=== PATIENT | female | born 1980 | race Caucasian/White ===

== ENCOUNTER 2016-07-29 14:09 | Emergency (ER) | payer SELFPAY ==
--- NOTE | 2016-07-29 15:24 | ERRECORD ---
[facility] HPI RASH (15:00 DHAM) CHIEF COMPLAINT: Patient presents for evaluation of pruritis, Patient presents for evaluation of rash. HISTORIAN: History provided by patient, "I have had a rash with some itchy bumps off and on for a few months. The last time I noticed them was 2-3 days ago." she describes the bumps as "tiny and can hardly see them.". LOCATION: Symptoms are localized, most severe to upper back and upper arms but "they are gone now.". QUALITY: Rash described as papular. SEVERITY: Currently there are no symptoms. TIME COURSE: Gradual onset of symptoms, 2, months ago, Symptoms are improving, are intermittent. ASSOCIATED WITH: No associated chills, No associated extremity swelling, No associated fever, No associated oral lesions, No associated pain, No associated shortness of breath, No associated scaling, No associated upper respiratory infection. EXACERBATED BY: Patient's condition exacerbated by nothing. RELIEVED BY: Patient's condition relieved by time. ROS (15:02 DHAM) CONSTITUTIONAL: Historian denies chills, denies fever. EYES: Historian denies eye redness, denies eye discharge, denies itching, denies tearing. ENT: Historian denies rhinorrhea, denies sore throat. RESPIRATORY: Historian denies cough, denies shortness of breath, denies sputum, denies wheezing. GI: Historian denies abdominal pain, denies nausea, denies vomiting. SKIN: Historian reports pruritis, reports rash. NEUROLOGIC: Historian denies mental status changes. ALLERGIC/IMMUNOLOGIC: Historian denies eczema, denies frequent infections, denies hives. PSYCHIATRIC: bipolar. PAST MEDICAL HISTORY MEDICAL HISTORY: Flu vaccine not up to date, Tetanus immunization up to date, Pneumococcal vaccine not up to date, HX OF BLOOD CLOTS (DVT LEFT LEG, PULMONARY EMBOLISM RIGHT LUNG), carpal tunnel. VERIFIED 07/29/16. (14:21 LGIB) FEMALE SURGICAL HISTORY: Surgical history of tubal ligation, TUBES IN EARS. VERIFIED 07/29/16. (14:21 LGIB) PSYCHIATRIC HISTORY: Psychiatric history includes, anxiety, bipolar disorder, depression, OCD, PTSD VERIFIED 07/29/16. (14:21 LGIB) SOCIAL HISTORY: Patient denies alcohol use, Patient denies drug use, Patient currently uses tobacco, daily, Patient smokes 1 pack per day VERIFIED 07/29/16. (14:21 LGIB) FAMILY HISTORY: Family istory is not significant. (14:21 LGIB) &a-1R&a+25V*p+0X*r9901D*c202B*c15G*c2P*p-0X&a-25V&a+1R Name: Yazmin Pablo : 1980 F36 MedRec: [id number] AcctNum: [id number] Prepared: [facility] Jul 30, 2016 01:22 by Interface Page 1 of 3 pMD [facility] NOTES: I have reviewed the nursing documentation regarding PMHX, social hx, family hx, and surgical history as well as vitals and triage notes and agree. (14:55 DHAM) KNOWN ALLERGIES Sulfa (Sulfonamide Antibiotics): Reaction: Rash, Source: Patient, - Entered category: Sulfa (Sulfonamide Antibiotics) -- Entered category: Sulfa (Sulfonamide Antibiotics) -- Entered category: Sulfa (Sulfonamide Antibiotics) -- Entered category: Sulfa (Sulfonamide Antibiotics) -- Entered category: Sulfa (Sulfonamide Antibi CURRENT MEDICATIONS (WedJul 29, 2016 14:19 LGIB) BuSpar: TABLET : Strength - 5 mg : ORAL Patient Dose: 10 mg Oral 2 times a day. Wellbutrin: TABLET : Strength - 100 mg : ORAL Patient Dose: 300 mg Oral once a day. warfarin: TABLET : Strength - 5 mg : ORAL Patient Dose: 5 mg Oral once a day.5 MG EVERY OTHER DAY AND 7.5 MG EVERY 3RD DAY. LaMICtal: TABLET : Strength - 25 mg : ORAL Patient Dose: unk mg Oral. VITAL SIGNS (14:21 LGIB) VITAL SIGNS: BP: 113/78, Pulse: 88, Resp: 18 (Non-Labored), Temp: 98.2 (Oral), Pain: 0, O2 sat: 96 on Room Air, Time: 07/29/2016 14:21. PHYSICAL EXAM (15:03 DHAM) CONSTITUTIONAL: Vital signs reviewed, Patient afebrile, Pulse normal, Blood pressure normal, Respiratory rate normal, Patient appears non toxic, Patient appears pain free, Patient alert and oriented to person, place and time. EYES: Eye exam included findings of eyelids normal to inspection, Pupils equally round and reactive to light, Extraocular muscles intact, Conjunctiva normal. SKIN: Pt says that she can't see the rash now and I concur with no visible rash on the extremities or trunk at this time. LYMPHATIC: Lymphatic exam normal. PROBLEM LIST No recorded problems DIAGNOSIS (15:05 DHAM) FINAL: PRIMARY: apparent normal exam. PRESCRIPTION No recorded prescriptions &a-1R&a+25V*p+0X*f9053L*c202B*c15G*c2P*p-0X&a-25V&a+1R Name: Yazmin Pablo : 1980 6 MedRec: [id number] AcctNum: [id number] Prepared: WedJul 30, 2016 01:22 by Interface Page 2 of 3 pMD [facility] DISPOSITION PATIENT: Disposition Type: Discharge, Disposition: *Discharge Home. (15:05 DHAM) Patient left the department. (15:12 LGIB) Rodriguez: DHAM=MD Angelo, Javier LGIB=LIDIA Norwood, Barbara &a-1R&a+25V*p+0X*c7771W*c202B*c15G*c2P*p-0X&a-25V&a+1R Name: Yazmin Pablo : 1980 6 MedRec: [id number] AcctNum: [id number] Prepared: WedJul 30, 2016 01:22 by Interface Page 3 of 3 pMD MTDD
--- NOTE | 2016-07-29 15:29 | PICIS ---
[facility] EMERGENCY RECORD TRIAGE (WedJul 29, 2016 14:19 LGIB) TRIAGE NOTES: rash for a few months, began when taking lamictal. (WedJul 29, 2016 14:19 LGIB) PATIENT: NAME: Yazmin Pablo, AGE: 36, GENDER: female, : Sat 1980, TIME OF GREET: WedJul 29, 2016 14:10, PREFERRED LANGUAGE: Kyrgyz, ETHNICITY: Not or , HIGH ALERT: HIGH ALERT 3, ECODE BILLING MAP: [facility], SSN: [id number], Zip Code: [address], KG WEIGHT: 99.79, PHONE: , , , PERSON ID: [id number], PAYMENT: [employer] Self Pay, PCP: MD Crabtree Kyle. (WedJul 29, 2016 14:19 LGIB) COMPLAINT: rash. (WedJul 29, 2016 14:19 LGIB) ADMISSION: URGENCY: 5 Fast Track, ADMISSION SOURCE: Home, TRANSPORT: CAR, BED: ER -03. (WedJul 29, 2016 14:19 LGIB) SIRS SCORING: Heart Rate 55-109 (0), Temp range 96.8-101.1 (0), respiratory rate 12-24 (0), Mental Status altered: no (0), Total SIRS Score 0. (14:21 LGIB) PROVIDERS: TRIAGE NURSE: Barbara Norwood RN. (WedJul 29, 2016 14:19 LGIB) PREVIOUS VISIT ALLERGIES: Sulfa (Sulfonamide Antibiotics). (WedJul 29, 2016 14:19 LGIB) Sulfa (Sulfonamide Antibiotics). (14:21 LGIB) KNOWN ALLERGIES Sulfa (Sulfonamide Antibiotics): Reaction: Rash, Source: Patient, - Entered category: Sulfa (Sulfonamide Antibiotics) -- Entered category: Sulfa (Sulfonamide Antibiotics) -- Entered category: Sulfa (Sulfonamide Antibiotics) -- Entered category: Sulfa (Sulfonamide Antibiotics) -- Entered category: Sulfa (Sulfonamide Antibi CURRENT MEDICATIONS (WedJul 29, 2016 14:19 LGIB) BuSpar: TABLET : Strength - 5 mg : ORAL Patient Dose: 10 mg Oral 2 times a day. Wellbutrin: TABLET : Strength - 100 mg : ORAL Patient Dose: 300 mg Oral once a day. warfarin: TABLET : Strength - 5 mg : ORAL Patient Dose: 5 mg Oral once a day.5 MG EVERY OTHER DAY AND 7.5 MG EVERY 3RD DAY. LaMICtal: TABLET : Strength - 25 mg : ORAL Patient Dose: unk mg Oral. VITAL SIGNS (14:21 LGIB) VITAL SIGNS: BP: 113/78, Pulse: 88, Resp: 18 (Non-Labored), Temp: 98.2 (Oral), Pain: 0, O2 sat: 96 on Room Air, Time: 07/29/2016 14:21. NURSING ASSESSMENT: SKIN (14:46 LGIB) &a-1R&a+25V*p+0X*x3777Y*c202B*c15G*c2P*p-0X&a-25V&a+1R Name: Yazmin Pablo : 1980 F36 MedRec: [id number] AcctNum: [id number] Prepared: Silvia Jul 30, 2016 01:22 by Interface Page 1 of 4 pMD [facility] EMERGENCY RECORD CONSTITUTIONAL: Complex assessment performed, Patient arrives ambulatory, Gait steady, History obtained from patient, Patient appears comfortable, Patient cooperative, Patient alert, Oriented to person, place and time, Skin warm, Skin dry, Skin normal in color, Mucous membranes pink, Mucous membranes moist, Patient is well-groomed, Patient complains of RASH, GENERALIZED RASH, MORE FOCUSED ON BILATERAL UPPER ARMS AND BACK. PT NOTICED THE RASH BEGINNING ABOUT THE SAME TIME SHE BEGAN TAKING LAMICTAL A FEW MONTHS AGO. PAIN: Patient rates pain as 0 out of 10. SKIN: Skin assessment findings include skin warm, Skin dry, Skin normal in color, Inspection findings include rash, flesh colored, flat, itchy, without drainage. SAFETY: Side rails up, Cart/Stretcher in lowest position, Call light within reach, Hospital ID band on. NURSING PROCEDURE: DISCHARGE NOTE (15:16 LGIB) DISCHARGE: Patient discharged to home, ambulating without assistance, driving self, unaccompanied, Summary of Care printed/ provided, Patient requested and was provided an electronic copy of Discharge Instructions, Discharge instructions given to patient, Simple or moderate discharge teaching performed, Above person(s) verbalized understanding of discharge instructions and follow-up care, Patient treated and evaluated by physician. BELONGINGS: Belongings and valuables with patient at time of discharge include:, Belongings remain with patient, Valuables remain with patient. HPI RASH (15:00 DHAM) CHIEF COMPLAINT: Patient presents for evaluation of pruritis, Patient presents for evaluation of rash. HISTORIAN: History provided by patient, "I have had a rash with some itchy bumps off and on for a few months. The last time I noticed them was 2-3 days ago." she describes the bumps as "tiny and can hardly see them.". LOCATION: Symptoms are localized, most severe to upper back and upper arms but "they are gone now.". QUALITY: Rash described as papular. SEVERITY: Currently there are no symptoms. TIME COURSE: Gradual onset of symptoms, 2, months ago, Symptoms are improving, are intermittent. ASSOCIATED WITH: No associated chills, No associated extremity swelling, No associated fever, No associated oral lesions, No associated pain, No associated shortness of breath, No associated scaling, No associated upper respiratory infection. EXACERBATED BY: Patient's condition exacerbated by nothing. RELIEVED BY: Patient's condition relieved by time. ROS (15:02 DHAM) CONSTITUTIONAL: Historian denies chills, denies fever. &a-1R&a+25V*p+0X*o2638G*c202B*c15G*c2P*p-0X&a-25V&a+1R Name: Yazmin Pablo : 1980 F36 MedRec: [id number] AcctNum: [id number] Prepared: WedJul 30, 2016 01:22 by Interface Page 2 of 4 pMD [facility] EMERGENCY RECORD EYES: Historian denies eye redness, denies eye discharge, denies itching, denies tearing. ENT: Historian denies rhinorrhea, denies sore throat. RESPIRATORY: Historian denies cough, denies shortness of breath, denies sputum, denies wheezing. GI: Historian denies abdominal pain, denies nausea, denies vomiting. SKIN: Historian reports pruritis, reports rash. NEUROLOGIC: Historian denies mental status changes. ALLERGIC/IMMUNOLOGIC: Historian denies eczema, denies frequent infections, denies hives. PSYCHIATRIC: bipolar. PAST MEDICAL HISTORY MEDICAL HISTORY: Flu vaccine not up to date, Tetanus immunization up to date, Pneumococcal vaccine not up to date, HX OF BLOOD CLOTS (DVT LEFT LEG, PULMONARY EMBOLISM RIGHT LUNG), carpal tunnel. VERIFIED 07/29/16. (14:21 LGIB) FEMALE SURGICAL HISTORY: Surgical history of tubal ligation, TUBES IN EARS. VERIFIED 07/29/16. (14:21 LGIB) PSYCHIATRIC HISTORY: Psychiatric history includes, anxiety, bipolar disorder, depression, OCD, PTSD VERIFIED 07/29/16. (14:21 LGIB) SOCIAL HISTORY: Patient denies alcohol use, Patient denies drug use, Patient currently uses tobacco, daily, Patient smokes 1 pack per day VERIFIED 07/29/16. (14:21 LGIB) FAMILY HISTORY: Family istory is not significant. (14:21 LGIB) NOTES: I have reviewed the nursing documentation regarding PMHX, social hx, family hx, and surgical history as well as vitals and triage notes and agree. (14:55 DHAM) PHYSICAL EXAM (15:03 DHAM) CONSTITUTIONAL: Vital signs reviewed, Patient afebrile, Pulse normal, Blood pressure normal, Respiratory rate normal, Patient appears non toxic, Patient appears pain free, Patient alert and oriented to person, place and time. EYES: Eye exam included findings of eyelids normal to inspection, Pupils equally round and reactive to light, Extraocular muscles intact, Conjunctiva normal. SKIN: Pt says that she can't see the rash now and I concur with no visible rash on the extremities or trunk at this time. LYMPHATIC: Lymphatic exam normal. EVENTS TRANSFER: Triage to Emergency Emergency Room -03. (WedJul 29, 2016 14:19 LGIB) Removed from Emergency Emergency Room -03. (15:12 LGIB) &a-1R&a+25V*p+0X*x0059V*c202B*c15G*c2P*p-0X&a-25V&a+1R Name: Yazmin Pablo : 1980 F36 MedRec: [id number] AcctNum: [id number] Prepared: [facility] Jul 30, 2016 01:22 by Interface Page 3 of 4 pMD [facility] EMERGENCY RECORD O2SAT INTERPRETATION (14:55 DHAM) O2SAT: Continuous pulse oximetry, Oxygen saturation 96%, on room air, Oxygen saturation interpretation: Normal, No intervention required. PROBLEM LIST No recorded problems DIAGNOSIS (15:05 DHAM) FINAL: PRIMARY: apparent normal exam. DISPOSITION PATIENT: Disposition Type: Discharge, Disposition: *Discharge Home. (15:05 DHAM) Patient left the department. (15:12 LGIB) INSTRUCTION (15:06 DHAM) DISCHARGE: NORMAL EXAM, (6Y - ADULT). FOLLOWUP: MD Leyda, Ilan, [facility], [address] [place] [address], . SPECIAL: Please return for any new rash or see your pcp while the rash is present. Return for any concerns. PRESCRIPTION No recorded prescriptions IMAGING (15:13 LGIB) *DISCHARGE INSTRUCTIONS RECEIPT: Image captured from scanner. *SUPPLY CHARGE SHEET: Image captured from scanner. ADMIN (WedJul 30, 2016 01:21 DHAM) DIGITAL SIGNATURE: MD Stephens Darren. Rodriguez: CINDY=MD Stephens Darren LGIB=LIDIA Norwood, Barbara &a-1R&a+25V*p+0X*u2910A*c202B*c15G*c2P*p-0X&a-25V&a+1R Name: Bev Yazmin Smitha : 1980 F36 MedRec: [id number] AcctNum: [id number] Prepared: WedJul 30, 2016 01:22 by Interface Page 4 of 4 pMD MTDD
== END 2016-07-29 15:12 | disposition home or self-care (01) ==
LOC: BURERS 14:09
DX: Z71.1 Person with feared health complaint in whom no diagnosis is made (principal); F41.9 Anxiety disorder, unspecified; F31.9 Bipolar disorder, unspecified; F42.9 Obsessive-compulsive disorder, unspecified; F43.10 Post-traumatic stress disorder, unspecified; F17.210 Nicotine dependence, cigarettes, uncomplicated; Z79.899 Other long term (current) drug therapy
CPT/HCPCS: 99282

== ENCOUNTER 2016-07-30 14:58 | Emergency (ER) | payer SELFPAY ==
[2016-07-30 15:43] LABS: Prothrombin Time 28.3 SEC (12.0-14.7)
[2016-07-30 15:45] LABS: ALT (SGPT) 13 U/L (0-55); AST (SGOT) 14 U/L (5-34); Alkaline Phosphatase 60 U/L (40-150); Anion Gap 10 mmol/L (10-20); BUN (Urea Nitrogen) 15 mg/dL (7.0-18.7); Bilirubin, Total 0.3 mg/dL (0.2-1.2); Calc. Creatinine Clearance 0 mL/min (70-130); Calcium 8.4 mg/dL (7.8-10.44); Carbon Dioxide 24 mmol/L (22-29); Chloride 109 mmol/L (98-107); Estimated GFR-MDRD 75; Globulin 2.8 g/dL (2.4-3.5); Protein, Total 6.5 g/dL (6.0-8.3)
--- NOTE | 2016-07-30 16:12 | ERRECORD ---
[facility] EMERGENCY RECORD [facility] CHIEF COMPLAINT: Patient presents for evaluation of cough, Patient presents for evaluation of 'Lung pain'. HISTORIAN: History provided by patient, 36F presents to the ED with complaints of Lung Pain. States that she was lying in bed today and had left posterior chest wall pain. Has a history of blood clots and is on Warfarin. Reports ongoing cough. Denies chest pain, denies shortness of breath. Denies fever, hemoptysis, headache. LOCATION: Symptoms are localized, most severe to left posterior back. QUALITY: Pain is sharp in nature, described as tearing sensation. TIME COURSE: Sudden onset of symptoms, There has been no change in the patient's symptoms over time. ASSOCIATED WITH: Associated with pleuritic symptoms. EXACERBATED BY: Patient's condition exacerbated by smoking. RELIEVED BY: Patient's condition relieved by nothing because patient has not tried anything for relief. ROS (15:20 JJA) CONSTITUTIONAL: Negative constitutional review of systems, Historian denies chills, denies fever. EYES: Negative eye review of systems, Historian denies eye pain, denies vision changes. ENT: Negative ears, nose, throat review of systems, Historian denies rhinorrhea, denies sore throat, denies voice changes. CARDIOVASCULAR: Negative cardiovascular review of systems, Historian denies chest pain, denies palpitations. RESPIRATORY: Historian reports cough, cough, pleuritic left back pain. GI: Negative gastrointestinal review of systems, Historian denies abdominal pain, denies constipation, denies diarrhea, denies nausea, denies vomiting. GENITOURINARY FEMALE: Negative genitourinary review of systems, Historian denies dysuria, denies frequency. MUSCULOSKELETAL: Negative musculoskeletal review of systems, Historian denies back pain, denies fall, denies injury. SKIN: Negative skin review of systems, Historian denies rash, denies skin changes. NEUROLOGIC: Negative neurologic review of systems, Historian denies headache, denies mental status changes, denies paralysis, denies paresthesias, denies sensory changes. HEMO/LYMPHATIC: Normal hematologic/lymphatic system review, Historian denies abnormal blood clotting. ALLERGIC/IMMUNOLOGIC: Normal allergy/immunologic system review, Historian denies frequent infections. PAST MEDICAL HISTORY (15:04 KMOR) MEDICAL HISTORY: Flu vaccine not up to date, Tetanus immunization up to date, Pneumococcal vaccine not up to date, HX OF &a-1R&a+25V*p+0X*q4163O*c202B*c15G*c2P*p-0X&a-25V&a+1R Name: Yazmin Pablo : 1980 F36 MedRec: [id number] AcctNum: [id number] Prepared: Silvia Jul 30, 2016 16:06 by Interface Page 1 of 4 pMD [facility] EMERGENCY RECORD BLOOD CLOTS (DVT LEFT LEG, PULMONARY EMBOLISM RIGHT LUNG), carpal tunnel. FEMALE SURGICAL HISTORY: Surgical history of tubal ligation, TUBES IN EARS. CAMI. PSYCHIATRIC HISTORY: Psychiatric history includes, anxiety, bipolar disorder, depression, OCD, PTSD VERIFIED. SOCIAL HISTORY: Patient denies alcohol use, Patient denies drug use, Patient currently uses tobacco, daily, Patient smokes 1 pack per day. FAMILY HISTORY: Family istory is not significant. KNOWN ALLERGIES Sulfa (Sulfonamide Antibiotics): Reaction: Rash, Source: Patient, - Entered category: Sulfa (Sulfonamide Antibiotics) -- Entered category: Sulfa (Sulfonamide Antibiotics) -- Entered category: Sulfa (Sulfonamide Antibiotics) -- Entered category: Sulfa (Sulfonamide Antibiotics) -- Entered category: Sulfa (Sulfonamide Antibi CURRENT MEDICATIONS (15:02 KMOR) BuSpar: TABLET : Strength - 5 mg : ORAL Patient Dose: 10 mg Oral 2 times a day. Wellbutrin: TABLET : Strength - 100 mg : ORAL Patient Dose: 300 mg Oral once a day. warfarin: TABLET : Strength - 5 mg : ORAL Patient Dose: 5 mg Oral once a day.5 MG EVERY OTHER DAY AND 7.5 MG EVERY 3RD DAY. LaMICtal: TABLET : Strength - 25 mg : ORAL Patient Dose: unk mg Oral. VITAL SIGNS VITAL SIGNS: Resp: 18, Pain: 2, Time: 07/30/2016 15:01. (15:01 KMOR) BP: 117/79, Pulse: 103, O2 sat: 97 on Room Air, Time: 07/30/2016 15:03. (15:03 LSMI) Pulse: 98, O2 sat: 97 on Room Air, Time: 07/30/2016 15:33. (15:33 KMOR) BP: 132/96, Time: 07/30/2016 15:37. (15:37 KMOR) Temp: 98.0 (Oral), Time: 07/30/2016 15:47. (15:47 KMOR) PHYSICAL EXAM (15:20 [facility]) CONSTITUTIONAL: Vital signs reviewed, Patient afebrile, Pulse normal, Blood pressure normal, Respiratory rate normal, Patient appears non toxic, Patient appears pain free, Patient alert and oriented to person, place and time. HEAD: Head exam normal, Head exam included findings of head atraumatic, normocephalic. EYES: Eye exam normal, Eye exam included findings of eyelids &a-1R&a+25V*p+0X*k6891I*c202B*c15G*c2P*p-0X&a-25V&a+1R Name: Yazmin Pablo : 1980 F36 MedRec: [id number] AcctNum: [id number] Prepared: Silvia Jul 30, 2016 16:06 by Interface Page 2 of 4 D [facility] EMERGENCY RECORD normal to inspection, Pupils equally round and reactive to light, Extraocular muscles intact, no nystagmus. ENT: ENT exam normal, Ear exam normal, external ear normal, tympanic membranes normal, no bleeding, Pharynx exam normal, Uvula exam normal, Tonsil exam normal, Mouth exam normal, mucous membranes moist, teeth normal. NECK: Neck exam normal, Neck exam included findings of normal range of motion, Trachea midline, no meningeal signs, no cervical adenopathy, no tenderness. RESPIRATORY CHEST: coarse upper airway breath sounds. CARDIOVASCULAR: Cardiovascular assessment normal, Cardiovascular exam included findings of heart rate regular rate and rhythm, Heart sounds normal. ABDOMEN FEMALE: Abdominal exam included findings of abdomen nontender, Bowel sounds normal, no distension, no mass, no pulsatile masses, no peritoneal signs, no rigidity, no guarding, no rebound, Rovsing's sign absent. BACK: Back exam normal, Back exam included findings of normal inspection, range of motion normal, no tenderness. UPPER EXTREMITY: Upper extremity exam normal, Upper extremity exam included findings of inspection normal, Range of motion normal, Motor strength normal, Sensation intact, Radial pulse normal. LOWER EXTREMITY: Lower extremity exam normal, Lower extremity exam included findings of inspection normal, Range of motion normal, Motor strength normal, Sensation intact, Posterior tibial pulse normal, Pedal pulse normal. NEURO: Neuro exam normal, Neuro exam findings include patient oriented to person, place and time, Speech normal, Gait normal, Cranial nerves intact, no focal motor deficits, no focal sensory deficits. SKIN: Skin exam normal, Skin exam included findings of skin warm, dry, and normal in color, no rash. PSYCHIATRIC: Psychiatric exam normal, Normal affect. RADIOLOGYINTERPRETATION (15:36 JJA) CHEST: Chest films negative, no infiltrates, no pneumothorax, no hemothorax, no cardiomegaly. DOCTOR NOTES TEXT: Patient presented with concern that she has a new PE. Wells score for PE 1.5 for previous PE, puts her in the low risk group. Symptoms were more concerning for viral infection rather than PE, but due to her history we obtained lab testing and radiology studies. Dimer was negative, effectively ruling out pulmonary embolism. CXR showed no focal infiltrates, and I believe her symptoms are likely secondary to a viral URI. She is appropriate for outpatient management. (15:21 JJA) PATIENT STATUS: Patient has improved since arrival to emergency department. (15:55 [facility]) PATIENT PLAN: The patient will be discharged, The patient will &a-1R&a+25V*p+0X*m8460Y*c202B*c15G*c2P*p-0X&a-25V&a+1R Name: Yazmin Pablo : 1980 F36 MedRec: [id number] AcctNum: [id number] Prepared: [facility] Jul 30, 2016 16:06 by Interface Page 3 of 4 pMD [facility] EMERGENCY RECORD follow up with primary care physician. (15:55 [facility]) DATA REVIEWED: Lab data reviewed, Xray data reviewed. (15:55 JJA) PROBLEM LIST No recorded problems DIAGNOSIS (15:53 JJA) FINAL: PRIMARY: Viral infection. PRESCRIPTION No recorded prescriptions DISPOSITION PATIENT: Disposition Type: Discharge, Disposition: *Discharge Home. (15:53 JJA) Patient left the department. (16:00 KMOR) Rodriguez: SHANEKA=MD Katie, Antwon KMOR=LIDIA Bearden, Doreen SILVERMANI=DAVID Leon Leah &a-1R&a+25V*p+0X*o4273Z*c202B*c15G*c2P*p-0X&a-25V&a+1R Name: BevYazmin : 1980 F36 MedRec: [id number] AcctNum: [id number] Prepared: Silvia Jul 30, 2016 16:06 by Interface Page 4 of 4 pMD MTDD
--- NOTE | 2016-07-30 16:15 | PICIS ---
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 (WedJul 30, 2016 15:02 KMOR) PATIENT: NAME: Yazmin Pablo, AGE: 36, GENDER: female, : Sat 1980, TIME OF GREET: WedJul 30, 2016 14:59, PREFERRED LANGUAGE: Yi, ETHNICITY: Not or , HIGH ALERT: HIGH ALERT 3, ECODE BILLING MAP: [facility], SSN: [id number], Zip Code: [address], KG WEIGHT: 99.79, PHONE: , , , PERSON ID: [id number], PAYMENT: SJX Self Pay, PCP: MD Crabtree Kyle. (WedJul 30, 2016 15:02 KMOR) COMPLAINT: Lung pain. (WedJul 30, 2016 15:02 KMOR) ADMISSION: URGENCY: 4 Non Urgent, ADMISSION SOURCE: Home, TRANSPORT: CAR, BED: ER -02. (WedJul 30, 2016 15:02 KMOR) ASSESSMENT: Assessment: A&OX4. RR EVEN AND UNLABORED., Symptoms began 30 min ago. (15:04 KMOR) PAIN: Patient complains of pain described as, aching, on a scale 0-10 patient rates pain as 3, Location LEFT LUNG. (15:04 KMOR) SIRS SCORING: Heart Rate 55-109 (0), Temp range 96.8-101.1 (0), respiratory rate 12-24 (0), Mental Status altered: no (0), Infection or Suspected Infection: No. (15:04 KMOR) TRIAGE SCREENING: Patient denies suicidal ideation, Patient denies presence of domestic violence. (15:04 KMOR) LMP: Last menstrual period: 07/23/2016. (15:04 KMOR) PROVIDERS: TRIAGE NURSE: Doreen Bearden RN. (Silvia Jul 30, 2016 15:02 KMOR) VITAL SIGNS: Resp 18, Pain 2, Time 07/30/2016 15:01. (15:01 KMOR) PREVIOUS VISIT ALLERGIES: Sulfa (Sulfonamide Antibiotics). (WedJul 30, 2016 15:02 KMOR) Sulfa (Sulfonamide Antibiotics). (15:04 KMOR) KNOWN ALLERGIES Sulfa (Sulfonamide Antibiotics): Reaction: Rash, Source: Patient, - Entered category: Sulfa (Sulfonamide Antibiotics) -- Entered category: Sulfa (Sulfonamide Antibiotics) -- Entered category: Sulfa (Sulfonamide Antibiotics) -- Entered category: Sulfa (Sulfonamide Antibiotics) -- Entered category: Sulfa (Sulfonamide Antibi CURRENT MEDICATIONS (15:02 KMOR) BuSpar: TABLET : Strength - 5 mg : ORAL Patient Dose: 10 mg Oral 2 times a day. Wellbutrin: TABLET : Strength - 100 mg : ORAL Patient Dose: 300 mg Oral once a day. warfarin: TABLET : Strength - 5 mg : ORAL Patient Dose: 5 mg Oral once a day.5 MG EVERY OTHER DAY AND 7.5 MG EVERY 3RD DAY. &a-1R&a+25V*p+0X*w2450W*c202B*c15G*c2P*p-0X&a-25V&a+1R Name: Yazmin Pablo : 1980 F36 MedRec: [id number] AcctNum: [id number] Prepared: WedJul 30, 2016 16:06 by Interface Page 1 of 6 pMD [facility] EMERGENCY RECORD LaMICtal: TABLET : Strength - 25 mg : ORAL Patient Dose: unk mg Oral. VITAL SIGNS VITAL SIGNS: Resp: 18, Pain: 2, Time: 07/30/2016 15:01. (15:01 KMOR) BP: 117/79, Pulse: 103, O2 sat: 97 on Room Air, Time: 07/30/2016 15:03. (15:03 LSMI) Pulse: 98, O2 sat: 97 on Room Air, Time: 07/30/2016 15:33. (15:33 KMOR) BP: 132/96, Time: 07/30/2016 15:37. (15:37 KMOR) Temp: 98.0 (Oral), Time: 07/30/2016 15:47. 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 PAIN: aching pain, left upper back, on a scale 0-10 patient rates pain as 2. RESPIRATORY/CHEST: Breath sounds clear, Respiratory assessment findings include respiratory effort easy, Respirations regular, Conversing normally, Neck and chest exam findings include trachea midline, Chest expansion equal, Chest movement symmetrical, no signs of distress, Associated with cough, loose. NOTES: Patient tolerated procedure well. NURSING PROCEDURE: DISCHARGE NOTE (15:55 KMOR) DISCHARGE: Patient discharged to home, ambulating without assistance, driving self, unaccompanied, Summary of Care printed/ provided, Transition record given to patient, Discharge instructions given to patient, Simple or moderate discharge teaching performed, by LIDIA Logan, Discharge instructions and follow up reviewed with patient. Pt ambulatory to discharge desk., Above person(s) verbalized understanding of discharge instructions and follow-up care. BELONGINGS: Belongings remain with patient, Valuables remain with patient. NURSING PROCEDURE: TRANSPORT TO TESTS PATIENT IDENTIFIER: Patient actively involved in identification process, Patient's identity verified by patient stating name, Patient's identity verified by patient stating date. 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 (15:31 KMOR) FOLLOW-UP: After procedure, patient returned to emergency department. (15:33 KMOR) ORDER DETAILS Order Name: Comprehensive Metabolic Panel, Status: Active, Time: 15:14 07/30/2016, User: SHANEKA, - Ordered for: MD Wilson Jason, - Entered by: MD Wilson Jason - [facility] Jul 30, 2016 15:14, - Quantity: 1, Order Name: D-Dimer (Quantitative), Status: Active, Time: 15:14 07/30/2016, User: SHANEKA, - Ordered for: MD Wilson Jason, - Entered by: MD Wilson Jason - Silvia Jul 30, 2016 15:14, - Quantity: 1, Order Name: Protime with INR, Status: Active, Time: 15:14 07/30/2016, User: SHANEKA, - Ordered for: MD Wilson Jason, - Entered by: MD Wilson Jason - Silvia Jul 30, 2016 15:14, - Quantity: 1, Order Name: XR Chest Pa & Lat STANDARD, Status: Active, Time: 15:14 07/30/2016, User: SHANEKA, - Ordered for: MD Wilson Jason, - Entered by: MD Wilson Jason - [facility] Jul 30, 2016 15:14, - Quantity: 1. HPI COUGH (15:16 JJA) CHIEF COMPLAINT: Patient presents for evaluation of cough, Patient presents for evaluation of 'Lung pain'. HISTORIAN: History provided by patient, 36F presents to the ED with complaints of Lung Pain. States that she was lying in bed today and had left posterior chest wall pain. Has a history of blood clots and is on Warfarin. Reports ongoing cough. Denies chest pain, denies shortness of breath. Denies fever, hemoptysis, headache. LOCATION: Symptoms are localized, most severe to left posterior back. QUALITY: Pain is sharp in nature, described as tearing sensation. TIME COURSE: Sudden onset of symptoms, There has been no change in the patient's symptoms over time. ASSOCIATED WITH: Associated with pleuritic symptoms. EXACERBATED BY: Patient's condition exacerbated by smoking. RELIEVED BY: Patient's condition relieved by nothing because patient has not tried anything for relief. ROS (15:20 JJA) CONSTITUTIONAL: Negative constitutional review of systems, Historian denies chills, denies fever. EYES: Negative eye review of systems, Historian denies eye pain, &a-1R&a+25V*p+0X*f5743W*c202B*c15G*c2P*p-0X&a-25V&a+1R Name: Yazmin Pablo : 1980 F36 MedRec: [id number] AcctNum: [id number] Prepared: Silvia Jul 30, 2016 16:06 by Interface Page 3 of 6 pMD [facility] EMERGENCY RECORD denies vision changes. ENT: Negative ears, nose, throat review of systems, Historian denies rhinorrhea, denies sore throat, denies voice changes. CARDIOVASCULAR: Negative cardiovascular review of systems, Historian denies chest pain, denies palpitations. RESPIRATORY: Historian reports cough, cough, pleuritic left back pain. GI: Negative gastrointestinal review of systems, Historian denies abdominal pain, denies constipation, denies diarrhea, denies nausea, denies vomiting. GENITOURINARY FEMALE: Negative genitourinary review of systems, Historian denies dysuria, denies frequency. MUSCULOSKELETAL: Negative musculoskeletal review of systems, Historian denies back pain, denies fall, denies injury. SKIN: Negative skin review of systems, Historian denies rash, denies skin changes. NEUROLOGIC: Negative neurologic review of systems, Historian denies headache, denies mental status changes, denies paralysis, denies paresthesias, denies sensory changes. HEMO/LYMPHATIC: Normal hematologic/lymphatic system review, Historian denies abnormal blood clotting. ALLERGIC/IMMUNOLOGIC: Normal allergy/immunologic system review, Historian denies frequent infections. PAST MEDICAL HISTORY (15:04 KMOR) MEDICAL HISTORY: Flu vaccine not up to date, Tetanus immunization up to date, Pneumococcal vaccine not up to date, HX OF BLOOD CLOTS (DVT LEFT LEG, PULMONARY EMBOLISM RIGHT LUNG), carpal tunnel. FEMALE SURGICAL HISTORY: Surgical history of tubal ligation, TUBES IN EARS. CAMI. PSYCHIATRIC HISTORY: Psychiatric history includes, anxiety, bipolar disorder, depression, OCD, PTSD VERIFIED. SOCIAL HISTORY: Patient denies alcohol use, Patient denies drug use, Patient currently uses tobacco, daily, Patient smokes 1 pack per day. FAMILY HISTORY: Family istory is not significant. PHYSICAL EXAM (15:20 JJA) CONSTITUTIONAL: Vital signs reviewed, Patient afebrile, Pulse normal, Blood pressure normal, Respiratory rate normal, Patient appears non toxic, Patient appears pain free, Patient alert and oriented to person, place and time. HEAD: Head exam normal, Head exam included findings of head atraumatic, normocephalic. EYES: Eye exam normal, Eye exam included findings of eyelids normal to inspection, Pupils equally round and reactive to light, Extraocular muscles intact, no nystagmus. ENT: ENT exam normal, Ear exam normal, external ear normal, tympanic membranes normal, no bleeding, Pharynx exam normal, Uvula &a-1R&a+25V*p+0X*m8036W*c202B*c15G*c2P*p-0X&a-25V&a+1R Name: Yazmin Pablo : 1980 F36 MedRec: [id number] AcctNum: [id number] Prepared: Silvia Jul 30, 2016 16:06 by Interface Page 4 of 6 pMD [facility] EMERGENCY RECORD exam normal, Tonsil exam normal, Mouth exam normal, mucous membranes moist, teeth normal. NECK: Neck exam normal, Neck exam included findings of normal range of motion, Trachea midline, no meningeal signs, no cervical adenopathy, no tenderness. RESPIRATORY CHEST: coarse upper airway breath sounds. CARDIOVASCULAR: Cardiovascular assessment normal, Cardiovascular exam included findings of heart rate regular rate and rhythm, Heart sounds normal. ABDOMEN FEMALE: Abdominal exam included findings of abdomen nontender, Bowel sounds normal, no distension, no mass, no pulsatile masses, no peritoneal signs, no rigidity, no guarding, no rebound, Rovsing's sign absent. BACK: Back exam normal, Back exam included findings of normal inspection, range of motion normal, no tenderness. UPPER EXTREMITY: Upper extremity exam normal, Upper extremity exam included findings of inspection normal, Range of motion normal, Motor strength normal, Sensation intact, Radial pulse normal. LOWER EXTREMITY: Lower extremity exam normal, Lower extremity exam included findings of inspection normal, Range of motion normal, Motor strength normal, Sensation intact, Posterior tibial pulse normal, Pedal pulse normal. NEURO: Neuro exam normal, Neuro exam findings include patient oriented to person, place and time, Speech normal, Gait normal, Cranial nerves intact, no focal motor deficits, no focal sensory deficits. SKIN: Skin exam normal, Skin exam included findings of skin warm, dry, and normal in color, no rash. PSYCHIATRIC: Psychiatric exam normal, Normal affect. LAB INTERPRETATION (15:54 JJA) INTERPRETATION: I reviewed the lab results, Chemistry normal, PT normal, D-dimer negative. EVENTS TRANSFER: Triage to Emergency Emergency Room -02. (WedJul 30, 2016 15:02 KMOR) Removed from Emergency Emergency Room -02. (16:00 KMOR) RADIOLOGYINTERPRETATION (15:36 JJA) CHEST: Chest films negative, no infiltrates, no pneumothorax, no hemothorax, no cardiomegaly. DOCTOR NOTES TEXT: Patient presented with concern that she has a new PE. Wells score for PE 1.5 for previous PE, puts her in the low risk group. Symptoms were more concerning for viral infection rather than PE, but due to her history we obtained lab testing and radiology studies. Dimer was negative, effectively ruling out pulmonary embolism. CXR showed no focal infiltrates, and I believe her symptoms &a-1R&a+25V*p+0X*w7079K*c202B*c15G*c2P*p-0X&a-25V&a+1R Name: Yazmin Pablo : 1980 F36 MedRec: [id number] AcctNum: [id number] Prepared: WedJul 30, 2016 16:06 by Interface Page 5 of 6 pMD [facility] EMERGENCY RECORD are likely secondary to a viral URI. She is appropriate for outpatient management. (15:21 JJA) PATIENT STATUS: Patient has improved since arrival to emergency department. (15:55 JJA) PATIENT PLAN: The patient will be discharged, The patient will follow up with primary care physician. (15:55 JJA) DATA REVIEWED: Lab data reviewed, Xray data reviewed. (15:55 JJAC) PROBLEM LIST No recorded problems DIAGNOSIS (15:53 JJA) FINAL: PRIMARY: Viral infection. DISPOSITION PATIENT: Disposition Type: Discharge, Disposition: *Discharge Home. (15:53 JJAC) Patient left the department. (16:00 KMOR) INSTRUCTION (15:53 JJA) DISCHARGE: URI, VIRAL, NO ABX (ADULT). [facility] [address] [place], [place] [id number], . SPECIAL: Follow up with regular doctor. Continue Warfarin. PRESCRIPTION No recorded prescriptions IMAGING (16:00 KMOR) *DISCHARGE INSTRUCTIONS RECEIPT: Image captured from scanner. *SUPPLY CHARGE SHEET: Image captured from scanner. ADMIN DIGITAL SIGNATURE: MD Wilson Jason. (15:55 JORGE) LIDIA Bearden Krista. (16:01 KMOR) Rodriguez: SHANEKA=MD Wilson Jason KMOR=LIDIA Bearden Krista LSMI=DAVID Leon Leah &a-1R&a+25V*p+0X*r4188W*c202B*c15G*c2P*p-0X&a-25V&a+1R Name: Bev Yazmin L : 1980 F36 MedRec: [id number] AcctNum: [id number] Prepared: [facility] Jul 30, 2016 16:06 by Interface Page 6 of 6 pMD MTDD
--- NOTE | 2016-07-30 22:29 | RAD ---
CHEST TWO VIEWS 07/30/2016 Comparison is made with a 10/25/2012 study. The heart is normal in size, and the lungs are clear. No acute infiltrate or effusion was seen. Th ere is no vascular congestion or edema. The mediastinum appears normal, and the trachea is midline. IMPRESSION: Stable exam showing no acute findings. POS: HOME
== END 2016-07-30 15:55 | disposition home or self-care (01) ==
LOC: BURERS 14:58
DX: B34.9 Viral infection, unspecified (principal); F41.9 Anxiety disorder, unspecified; F31.9 Bipolar disorder, unspecified; F43.10 Post-traumatic stress disorder, unspecified; F42.9 Obsessive-compulsive disorder, unspecified; I82.402 Acute embolism and thrombosis of unspecified deep veins of left lower extremity; Z86.711 Personal history of pulmonary embolism; F17.210 Nicotine dependence, cigarettes, uncomplicated; Z79.01 Long term (current) use of anticoagulants; Z79.899 Other long term (current) drug therapy
CPT/HCPCS: 36415; 71020; 80053; 85379; 85610; 99283

== ENCOUNTER 2016-08-13 14:08 | Outpatient (CLI) | payer MEDICAID, SELFPAY ==
[2016-08-13 15:15] LABS: Prothrombin Time 31.3 SEC (12.0-14.7)
== END 2016-08-13 14:09 | disposition home or self-care (01) ==
LOC: HPCALD 14:08
PROVIDERS: ATTEND Physician Assistant
DX: Z01.419 Encounter for gynecological examination (general) (routine) without abnormal findings (principal); Z20.2 Contact with and (suspected) exposure to infections with a predominantly sexual mode of transmission; Z86.711 Personal history of pulmonary embolism
CPT/HCPCS: 36415; 85610; 86592; 86593; 87389; 87480; 87491; 87510; 87591; 87660; 88142; G0123

== ENCOUNTER 2016-10-20 07:40 | Emergency (ER) | payer OTHER ==
[2016-10-20 08:13] LABS: Bilirubin Negative (Negative); Blood, Urine Negative (Negative); Clarity Clear (Clear); Glucose, Urine (Dipstick) Negative (Negative); Leukocyte Negative (Negative); Nitrite Negative (Negative); Protein, Urine (Dipstick) Negative (Neg-Trace); Urobilinogen 0.2 mg/dL (0.2-1.0); pH, Urine 6.5 (5.0-9.0)
[2016-10-20 08:15] LABS: Pregnancy Test - Urine (BHCG) NEGATIVE (NEGATIVE); Pregu Control Bar Appear? YES (CONTROL BAR)
[2016-10-20 08:26] LABS: #Basophils 0.1 thou/uL (0.0-0.2); #Eosinphils 0.3 thou/uL (0.0-0.7); #Lymphocytes 2.2 thou/uL (1.20-3.40); #Monocytes 0.8 thou/uL (0.11-0.59); #Neutrophils 3.7 thou/uL (1.40-6.50); %Basophils 1.1 % (0.0-1.0); %Eosinophils 3.8 % (0.0-10.0); %Lymphocytes 31.3 % (21.0-51.0); %Monocytes 10.9 % (0.0-10.0); %Neutrophils 52.8 % (42.0-75.0); Hemoglobin 15.5 g/dL (12.0-16.0); Mean Corpuscular HGB CONC 34.7 g/dL (32.0-36.0); Mean Corpuscular Hemoglobin 30.6 pg (27.0-31.0); Mean Corpuscular Volume 88.2 fl (81.0-99.0); Mean Platelet Volume 6.2 fL (7.4-10.4); Platelet Count 319 thou/uL (130-400); RBC Distribution Width 13.9 % (11.5-14.5); Red Blood Cell (RBC) Count 5.06 mill/uL (4.20-5.40)
[2016-10-20 08:32] LABS: INR-International Normal Ratio 2.9; Prothrombin Time 31.2 SEC (12.0-14.7)
[2016-10-20] MEDS ORDERED: Sodium Chloride 0.9% 100 ML ONE (08:37)
[2016-10-20] MEDS ORDERED: cefTRIAXone\\ROCEPHIN 2 GM VIAL ONE (08:37)
[2016-10-20 08:39] LABS: Anion Gap 11 mmol/L (10-20); BUN (Urea Nitrogen) 9 mg/dL (7.0-18.7); Calc. Creatinine Clearance 0 mL/min (70-130); Calcium 8.5 mg/dL (7.8-10.44); Carbon Dioxide 26 mmol/L (22-29); Chloride 107 mmol/L (98-107); Estimated GFR-MDRD 67; Glucose 98 mg/dL (70-105); Potassium 4.1 mmol/L (3.5-5.1); Sodium 140 mmol/L (136-145)
--- NOTE | 2016-10-20 21:24 | RAD ---
CHEST TWO VIEWS 10/20/16 Comparison is made with a 07/30/16 study. The heart is normal in size and the lungs are clear. No infiltrate or effusion was seen. There is no vascular congestion or edema. The trachea is midline. IMPRESSION: Stable exam showing no acute findings. POS: HOME
== END 2016-10-20 10:02 | disposition home or self-care (01) ==
LOC: BURERS 07:40
DX: J18.9 Pneumonia, unspecified organism (principal); F31.9 Bipolar disorder, unspecified; F41.9 Anxiety disorder, unspecified; F17.210 Nicotine dependence, cigarettes, uncomplicated; Z86.711 Personal history of pulmonary embolism; Z79.01 Long term (current) use of anticoagulants
CPT/HCPCS: 36415; 71020; 80048; 81003; 81025; 85025; 85610; 96361; 96365; J0696; J7050

== ENCOUNTER 2016-11-09 19:24 | Emergency (ER) | payer OTHER ==
[2016-11-09] MEDS ORDERED: predniSONE 20 MG TAB ONE (19:41)
== END 2016-11-09 20:19 | disposition home or self-care (01) ==
LOC: BURERS 19:24
DX: J20.9 Acute bronchitis, unspecified (principal); J30.1 Allergic rhinitis due to pollen; J06.9 Acute upper respiratory infection, unspecified; F31.9 Bipolar disorder, unspecified; F17.210 Nicotine dependence, cigarettes, uncomplicated; Z79.01 Long term (current) use of anticoagulants
CPT/HCPCS: 94640; J7506; J7620

== ENCOUNTER 2017-01-09 12:38 | Emergency (ER) | payer OTHER ==
[2017-01-09 13:14] LABS: Blood, Urine Trace (Negative); Clarity Cloudy (Clear); Glucose, Urine (Dipstick) Negative (Negative); Leukocyte Trace (Negative); Nitrite Negative (Negative); Specific Gravity, Urine 1.025 (1.005-1.030); Urobilinogen 0.2 mg/dL (0.2-1.0); pH, Urine 5.5 (5.0-9.0)
[2017-01-09 13:20] LABS: #Basophils 0.1 thou/uL (0.0-0.2); #Eosinphils 0.1 thou/uL (0.0-0.7); #Lymphocytes 1.7 thou/uL (1.20-3.40); #Monocytes 0.5 thou/uL (0.11-0.59); %Eosinophils 1.5 % (0.0-10.0); %Lymphocytes 20.2 % (21.0-51.0); %Monocytes 6.2 % (0.0-10.0); %Neutrophils 71.1 % (42.0-75.0); Hemoglobin 15.4 g/dL (12.0-16.0); Mean Corpuscular HGB CONC 33.8 g/dL (32.0-36.0); Mean Corpuscular Hemoglobin 29.4 pg (27.0-31.0); Mean Corpuscular Volume 86.9 fl (81.0-99.0); Mean Platelet Volume 6.4 fL (7.4-10.4); Platelet Count 339 thou/uL (130-400); RBC Distribution Width 14.3 % (11.5-14.5); Red Blood Cell (RBC) Count 5.24 mill/uL (4.20-5.40); White Blood Cell (WBC) Count 8.5 thou/uL (4.8-10.8)
[2017-01-09 13:21] LABS: INR-International Normal Ratio 2.5; PTT 41.8 SEC (22.9-36.1); Prothrombin Time 27.6 SEC (12.0-14.7)
[2017-01-09 13:23] LABS: Bilirubin Negative (Negative); Protein, Urine (Dipstick) Negative (Neg-Trace)
[2017-01-09 13:24] LABS: Bacteria/HPF 2+ HPF (None Seen); Crystals/HPF None Seen HPF (Negative); Hyaline Casts/LPF NONE SEEN LPF (0-3 Hyaline); Other Casts/LPF None Seen LPF (0-3 Hyaline); Oval Fat Bodies/HPF None Seen HPF (None Seen); RBC/HPF 0-3 HPF (0-3); Renal Epithelial None Seen HPF (0-3); Sperm/HPF None Seen HPF (None Seen); Transitional Epithelial NONE SEEN HPF (0-3); Trichomonas/HPF None Seen HPF (None Seen); Yeast-All Forms None Seen HPF (None Seen)
[2017-01-09 13:38] LABS: Anion Gap 15 mmol/L (10-20); BUN (Urea Nitrogen) 13 mg/dL (7.0-18.7); Calc. Creatinine Clearance 0 mL/min (70-130); Calcium 9.1 mg/dL (7.8-10.44); Carbon Dioxide 21 mmol/L (22-29); Chloride 105 mmol/L (98-107); Estimated GFR-MDRD 61; Glucose 103 mg/dL (70-105); Potassium 4.2 mmol/L (3.5-5.1); Sodium 137 mmol/L (136-145)
== END 2017-01-09 13:40 | disposition home or self-care (01) ==
LOC: BURERS 12:38
DX: G56.03 Carpal tunnel syndrome, bilateral upper limbs (principal); F31.9 Bipolar disorder, unspecified; F41.9 Anxiety disorder, unspecified; F43.10 Post-traumatic stress disorder, unspecified; F42.9 Obsessive-compulsive disorder, unspecified; F17.210 Nicotine dependence, cigarettes, uncomplicated; Z79.899 Other long term (current) drug therapy; Z79.01 Long term (current) use of anticoagulants
CPT/HCPCS: 80048; 81003; 81015; 85025; 85610; 85730; 87086; 99284

== ENCOUNTER 2017-01-17 12:27 | Emergency (ER) | payer OTHER ==
[2017-01-17] MEDS ORDERED: HYDROcodone/Acetaminophen 5/325 mg Tablet ONE (13:01)
--- NOTE | 2017-01-17 13:49 | RAD ---
RIGHT HAND 3 VIEWS: Date: 01/17/17 No fracture or dislocation seen. All bones appear intact. The carpal relations appear normal. IMPRESSION: No acute findings. POS: HOME
--- NOTE | 2017-01-17 13:53 | RAD ---
RIGHT WRIST 3 VIEWS: Date: 01/17/17 FINDINGS: No fracture, dislocation, or carpal abnormality was seen. All bones currently appear intact. IMPRESSION: No acute traumatic finding. POS: HOME
== END 2017-01-17 13:08 | disposition home or self-care (01) ==
LOC: BURERS 12:27
DX: S63.501A Unspecified sprain of right wrist, initial encounter (principal); S60.221A Contusion of right hand, initial encounter; F17.210 Nicotine dependence, cigarettes, uncomplicated; F41.9 Anxiety disorder, unspecified; F31.9 Bipolar disorder, unspecified; F43.10 Post-traumatic stress disorder, unspecified; F42.9 Obsessive-compulsive disorder, unspecified; Z86.711 Personal history of pulmonary embolism; Z86.718 Personal history of other venous thrombosis and embolism; Z79.01 Long term (current) use of anticoagulants; Z79.899 Other long term (current) drug therapy; X50.1XXA Overexertion from prolonged static or awkward postures, initial encounter

== ENCOUNTER 2017-01-18 02:28 | Emergency (ER) | payer OTHER ==
[2017-01-18] MEDS ORDERED: Acetaminophen 500 MG TAB ONE (03:10)
== END 2017-01-18 04:21 | disposition home or self-care (01) ==
LOC: BURERS 02:28
DX: S60.221A Contusion of right hand, initial encounter (principal); F41.9 Anxiety disorder, unspecified; F31.9 Bipolar disorder, unspecified; F17.210 Nicotine dependence, cigarettes, uncomplicated; Z79.01 Long term (current) use of anticoagulants; Z79.899 Other long term (current) drug therapy; V80.010A Animal-rider injured by fall from or being thrown from horse in noncollision accident, initial encounter
CPT/HCPCS: 99283

== ENCOUNTER 2017-05-07 16:18 | Emergency (ER) | payer OTHER, SELFPAY | END 2017-05-07 16:41 | disposition home or self-care (01) | LOC: BURERS 16:18 | DX: K02.9 Dental caries, unspecified (principal); K03.81 Cracked tooth; F41.9 Anxiety disorder, unspecified; F31.9 Bipolar disorder, unspecified; F42.9 Obsessive-compulsive disorder, unspecified; F43.10 Post-traumatic stress disorder, unspecified; F17.210 Nicotine dependence, cigarettes, uncomplicated; Z86.711 Personal history of pulmonary embolism; Z79.01 Long term (current) use of anticoagulants; Z79.899 Other long term (current) drug therapy | CPT/HCPCS: 99282 ==

== ENCOUNTER 2017-07-16 15:44 | Emergency (ER) | payer SELFPAY | END 2017-07-16 16:04 | disposition home or self-care (01) | LOC: BURERS 15:44 | DX: B86 Scabies (principal); F41.9 Anxiety disorder, unspecified; F31.9 Bipolar disorder, unspecified; F17.210 Nicotine dependence, cigarettes, uncomplicated; F43.10 Post-traumatic stress disorder, unspecified | CPT/HCPCS: 99282 ==

== ENCOUNTER 2017-09-21 13:55 | Emergency (ER) | payer OTHER, SELFPAY ==
[2017-09-21] MEDS ORDERED: Bicillin LA 1.2 MILLION UNITS/2 ML SYRINGE ONE (14:42)
[2017-09-21] MEDS ORDERED: Acetaminophen 500 MG TAB ONE (14:42)
== END 2017-09-21 15:10 | disposition home or self-care (01) ==
LOC: BURERS 13:55
DX: J02.0 Streptococcal pharyngitis (principal); F41.9 Anxiety disorder, unspecified; F31.9 Bipolar disorder, unspecified; F42.9 Obsessive-compulsive disorder, unspecified; F43.10 Post-traumatic stress disorder, unspecified; F17.210 Nicotine dependence, cigarettes, uncomplicated; G56.00 Carpal tunnel syndrome, unspecified upper limb; Z79.891 Long term (current) use of opiate analgesic
CPT/HCPCS: 87430; 96372; J0561

== ENCOUNTER 2017-12-09 09:11 | Emergency (ER) | payer SELFPAY ==
[2017-12-09] MEDS ORDERED: Bicillin CR 1.2 MILL UNITS/2 ML SYRINGE ONE (09:24)
[2017-12-09] MEDS ORDERED: Dexamethasone 4 mg/ml Vial ONE (09:25)
== END 2017-12-09 09:35 | disposition home or self-care (01) ==
LOC: BURERS 09:11
DX: H92.02 Otalgia, left ear (principal); F41.9 Anxiety disorder, unspecified; F31.9 Bipolar disorder, unspecified; F42.9 Obsessive-compulsive disorder, unspecified; F43.10 Post-traumatic stress disorder, unspecified; F17.210 Nicotine dependence, cigarettes, uncomplicated; Z79.899 Other long term (current) drug therapy; Z79.891 Long term (current) use of opiate analgesic
CPT/HCPCS: 96372; J0558; J1100

== ENCOUNTER 2018-04-03 22:36 | Emergency (ER) | payer SELFPAY ==
[2018-04-03 23:27] LABS: #Basophils 0.1 thou/uL (0.0-0.2); #Eosinphils 0.3 thou/uL (0.0-0.7); #Monocytes 0.7 thou/uL (0.11-0.59); %Basophils 0.8 % (0.0-1.0); %Eosinophils 3.3 % (0.0-10.0); %Lymphocytes 33.4 % (21.0-51.0); %Monocytes 7.8 % (0.0-10.0); %Neutrophils 54.7 % (42.0-75.0); Hemoglobin 13.8 g/dL (12.0-16.0); Mean Corpuscular HGB CONC 32.8 g/dL (32.0-36.0); Mean Corpuscular Hemoglobin 29.7 pg (27.0-31.0); Mean Corpuscular Volume 90.8 fL (78.0-98.0); Mean Platelet Volume 6.5 fL (7.4-10.4); Platelet Count 359 thou/uL (130-400); RBC Distribution Width 14.3 % (11.5-14.5); Red Blood Cell (RBC) Count 4.64 mill/uL (4.20-5.40); White Blood Cell (WBC) Count 9.1 thou/uL (4.8-10.8)
[2018-04-03 23:45] LABS: ALT (SGPT) 12 U/L (8-55); AST (SGOT) 12 U/L (5-34); Alkaline Phosphatase 67 U/L (40-150); Anion Gap 12 mmol/L (10-20); BUN (Urea Nitrogen) 13 mg/dL (7.0-18.7); Bilirubin, Total 0.2 mg/dL (0.2-1.2); Calc. Creatinine Clearance 0 mL/min (70-130); Calcium 9.2 mg/dL (7.8-10.44); Carbon Dioxide 28 mmol/L (22-29); Chloride 104 mmol/L (98-107); Estimated GFR-MDRD 79; Globulin 2.9 g/dL (2.4-3.5); Glucose 90 mg/dL (70-105); Lipase 41 U/L (8-78); Potassium 3.8 mmol/L (3.5-5.1); Protein, Total 6.9 g/dL (6.0-8.3); Sodium 140 mmol/L (136-145); Troponin I 0.013 ng/mL (< 0.028)
--- NOTE | 2018-04-04 07:32 | RAD ---
PORTABLE CHEST: DATE: 04/03/2018. FINDINGS: An AP portable film at 2239 is compared with a 10/20/2016 film. The heart is normal in size and the lungs are clear. No infiltrate, effusion, or there acute change was appreciated. There is no vascular congestion or edema. The trachea is midline. IMPRESSION: No acute thoracic finding. POS: HOME
== END 2018-04-03 23:59 | disposition home or self-care (01) ==
LOC: BURERS 22:36
DX: M25.511 Pain in right shoulder (principal); F41.9 Anxiety disorder, unspecified; Z86.711 Personal history of pulmonary embolism; Z86.718 Personal history of other venous thrombosis and embolism; F31.9 Bipolar disorder, unspecified; F43.10 Post-traumatic stress disorder, unspecified; F42.9 Obsessive-compulsive disorder, unspecified; F17.210 Nicotine dependence, cigarettes, uncomplicated; Z79.899 Other long term (current) drug therapy
CPT/HCPCS: 36415; 71045; 80053; 82553; 83690; 84484; 85025; 85379; 93005; 94760

== ENCOUNTER 2018-04-21 18:48 | Emergency (ER) | payer SELFPAY ==
[2018-04-21] MEDS ORDERED: Cephalexin 500 MG CAP ONE (19:17)
[2018-04-21 19:26] LABS: #Basophils 0.1 thou/uL (0.0-0.2); #Eosinphils 0.3 thou/uL (0.0-0.7); #Lymphocytes 2.5 thou/uL (1.20-3.40); #Monocytes 0.7 thou/uL (0.11-0.59); #Neutrophils 4.9 thou/uL (1.40-6.50); %Basophils 0.8 % (0.0-1.0); %Eosinophils 3.7 % (0.0-10.0); %Neutrophils 57.6 % (42.0-75.0); Mean Corpuscular HGB CONC 33.8 g/dL (32.0-36.0); Mean Corpuscular Hemoglobin 29.8 pg (27.0-31.0); Mean Corpuscular Volume 88.2 fL (78.0-98.0); Platelet Count 320 thou/uL (130-400); RBC Distribution Width 13.7 % (11.5-14.5); White Blood Cell (WBC) Count 8.4 thou/uL (4.8-10.8)
[2018-04-21 19:32] LABS: Pregnancy Test - Urine (BHCG) Negative (Negative); Pregu Control Background? CLEAR/WHITE (CLR/WHITE); Pregu Control Bar Appear? YES (CONTROL BAR)
[2018-04-21 19:40] LABS: Bilirubin Negative (Negative); Blood, Urine Large (Negative); Clarity Clear (Clear); Glucose, Urine (Dipstick) Negative (Negative); Leukocyte Trace (Negative); Nitrite Negative (Negative); Protein, Urine (Dipstick) Negative (Neg-Trace); Urobilinogen 0.2 mg/dL (0.2-1.0); pH, Urine 6.5 (5.0-9.0)
[2018-04-21 19:41] LABS: Bacteria/HPF 1+ HPF (None Seen); Other Microscopic Description CLUE CELLS; RBC/HPF 0-3 HPF (0-3); Squamous Epithelial 0-3 HPF (0-3); WBC/HPF 0-3 HPF (0-3)
[2018-04-21 19:43] LABS: ALT (SGPT) 13 U/L (8-55); AST (SGOT) 14 U/L (5-34); Acetaminophen Less than 6.0 mcg/mL (10.0-30.0); Albumin 3.9 g/dL (3.5-5.0); Alcohol Less than 10 mg/dL (Less than 10); Alkaline Phosphatase 56 U/L (40-150); Anion Gap 12 mmol/L (10-20); BUN (Urea Nitrogen) 10 mg/dL (7.0-18.7); Bilirubin, Total 0.4 mg/dL (0.2-1.2); Calc. Creatinine Clearance 0 mL/min (70-130); Calcium 8.7 mg/dL (7.8-10.44); Carbon Dioxide 25 mmol/L (22-29); Chloride 106 mmol/L (98-107); Estimated GFR-MDRD 83; Globulin 2.6 g/dL (2.4-3.5); Glucose 101 mg/dL (70-105); Potassium 3.7 mmol/L (3.5-5.1); Protein, Total 6.5 g/dL (6.0-8.3); Salicylate Less than 8.0 mg/dL (15.0-30.0); Sodium 139 mmol/L (136-145)
[2018-04-21 19:50] LABS: Amphetamine Not Detected (NotDetected); Barbiturates Screen Not Detected (NotDetected); Benzodiazepine Screen Not Detected (NotDetected); Cocaine Metabolite Screen Not Detected (NotDetected); Medtox Control Line Valid? VALID (VALID); Methadone Not Detected (NotDetected); Methamphetamine Not Detected (NotDetected); Opiate Screen Not Detected (NotDetected); Oxycodone Screen Not Detected (NotDetected); Phencyclidine (PCP) Not Detected (NotDetected); THC/Cannabinoid Screen Not Detected (NotDetected); Tricyclic Screen Not Detected (NotDetected)
[2018-04-22] MEDS ORDERED: Cephalexin 500 MG CAP ONE (08:34)
== END 2018-04-22 09:00 | disposition home or self-care (01) ==
LOC: BURERS 18:48
DX: R45.851 Suicidal ideations (principal); F17.210 Nicotine dependence, cigarettes, uncomplicated; F43.10 Post-traumatic stress disorder, unspecified; F42.9 Obsessive-compulsive disorder, unspecified; F31.9 Bipolar disorder, unspecified; F41.9 Anxiety disorder, unspecified; G56.00 Carpal tunnel syndrome, unspecified upper limb; Z79.02 Long term (current) use of antithrombotics/antiplatelets; Z79.899 Other long term (current) drug therapy; Z86.718 Personal history of other venous thrombosis and embolism
CPT/HCPCS: 80053; 80306; 80307; 81003; 81015; 81025; 85025; 99285

== ENCOUNTER 2018-06-18 11:07 | Emergency (ER) | payer SELFPAY ==
[2018-06-18 11:48] LABS: Pregnancy Test - Urine (BHCG) Negative (Negative)
[2018-06-18 11:49] LABS: Clarity Clear (Clear); Glucose, Urine (Dipstick) Negative (Negative); Leukocyte Negative (Negative); Nitrite Negative (Negative); Pregu Control Background? CLEAR/WHITE (CLR/WHITE); Pregu Control Bar Appear? YES (CONTROL BAR); Protein, Urine (Dipstick) Negative (Neg-Trace)
[2018-06-18 11:50] LABS: Bilirubin Negative (Negative); Blood, Urine Trace (Negative)
[2018-06-18 11:51] LABS: Bacteria/HPF 3+ HPF (None Seen); RBC/HPF 0-3 HPF (0-3); WBC/HPF 0-3 HPF (0-3)
[2018-06-18] MEDS ORDERED: Ondansetron ODT 4 MG TAB ONE (11:56)
[2018-06-18] MEDS ORDERED: metroNIDAZOLE 250 MG TAB ONE ×2 (12:07→12:28)
[2018-06-18] MEDS ORDERED: cefTRIAXone\\ROCEPHIN 500 MG VIAL ONE (12:07)
[2018-06-18] MEDS ORDERED: Azithromycin 250 MG TAB ONE ×2 (12:07→12:19)
[2018-06-18] MEDS ORDERED: Lidocaine 1% PF 5 ML VIAL ONE (12:08)
[2018-06-18 12:37] LABS: Amphetamine Detected (NotDetected); Barbiturates Screen Not Detected (NotDetected); Benzodiazepine Screen Not Detected (NotDetected); Cocaine Metabolite Screen Not Detected (NotDetected); Medtox Control Line Valid? VALID (VALID); Methadone Not Detected (NotDetected); Methamphetamine Detected (NotDetected); Opiate Screen Not Detected (NotDetected); Oxycodone Screen Not Detected (NotDetected); Phencyclidine (PCP) Not Detected (NotDetected); THC/Cannabinoid Screen Detected (NotDetected); Tricyclic Screen Not Detected (NotDetected)
[2018-06-22 21:02] LABS: Chlamydia by PCR Not Detected (NotDetected); GC by PCR Not Detected (NotDetected)
== END 2018-06-18 12:30 | disposition home or self-care (01) ==
LOC: BURERS 11:07
DX: R10.2 Pelvic and perineal pain (principal); Z86.711 Personal history of pulmonary embolism; F41.9 Anxiety disorder, unspecified; F31.9 Bipolar disorder, unspecified; F43.10 Post-traumatic stress disorder, unspecified; F17.210 Nicotine dependence, cigarettes, uncomplicated; Z79.01 Long term (current) use of anticoagulants
CPT/HCPCS: 80306; 81003; 81015; 81025; 87491; 87591; 96372; J0696; J2001; Q0162

== ENCOUNTER 2018-07-03 20:18 | Emergency (ER) | payer MEDICAID, SELFPAY ==
[2018-07-03 20:57] LABS: Clarity Hazy (Clear)
[2018-07-03 20:58] LABS: Bilirubin Negative (Negative); Blood, Urine Negative (Negative); Glucose, Urine (Dipstick) Negative (Negative); Leukocyte Negative (Negative); Nitrite Negative (Negative); Protein, Urine (Dipstick) Negative (Neg-Trace); Urobilinogen 0.2 mg/dL (0.2-1.0); pH, Urine 5.5 (5.0-9.0)
[2018-07-03 21:05] LABS: Pregnancy Test - Urine (BHCG) Negative (Negative); Pregu Control Background? CLEAR/WHITE (CLR/WHITE); Pregu Control Bar Appear? YES (CONTROL BAR); Specific Gravity 1.008 (1.002-1.036)
[2018-07-03] MEDS ORDERED: Phenazopyridine HCl 97.5 MG TABLET ONE (22:08)
[2018-07-06 19:14] LABS: Chlamydia by PCR Not Detected (NotDetected); GC by PCR Not Detected (NotDetected)
== END 2018-07-03 22:17 | disposition home or self-care (01) ==
LOC: BURERS 20:18
DX: R10.2 Pelvic and perineal pain (principal); Z86.718 Personal history of other venous thrombosis and embolism; F41.9 Anxiety disorder, unspecified; F31.9 Bipolar disorder, unspecified; F43.10 Post-traumatic stress disorder, unspecified; F17.210 Nicotine dependence, cigarettes, uncomplicated; Z79.899 Other long term (current) drug therapy
CPT/HCPCS: 81003; 81025; 87480; 87491; 87510; 87591; 87660; 99284

== ENCOUNTER 2018-09-09 15:21 | Emergency (ER) | payer MEDICAID, SELFPAY | END 2018-09-09 16:05 | disposition home or self-care (01) | LOC: BURERS 15:21 | DX: R55 Syncope and collapse (principal); E86.0 Dehydration; F41.9 Anxiety disorder, unspecified; F31.9 Bipolar disorder, unspecified; F43.10 Post-traumatic stress disorder, unspecified; F42.9 Obsessive-compulsive disorder, unspecified; F17.210 Nicotine dependence, cigarettes, uncomplicated; Z79.01 Long term (current) use of anticoagulants; Z79.899 Other long term (current) drug therapy; Z86.718 Personal history of other venous thrombosis and embolism | CPT/HCPCS: 99281 ==

== ENCOUNTER 2018-10-01 07:46 | Emergency (ER) | payer SELFPAY | END 2018-10-01 08:16 | disposition home or self-care (01) | LOC: BURERS 07:46 | DX: M62.830 Muscle spasm of back (principal); F41.9 Anxiety disorder, unspecified; F31.9 Bipolar disorder, unspecified; F17.210 Nicotine dependence, cigarettes, uncomplicated; F43.10 Post-traumatic stress disorder, unspecified; Z79.899 Other long term (current) drug therapy; Z79.01 Long term (current) use of anticoagulants ==

== ENCOUNTER 2018-11-12 16:40 | Emergency (ER) | payer SELFPAY | END 2018-11-12 18:27 | disposition home or self-care (01) | LOC: BURERS 16:40 | DX: K04.7 Periapical abscess without sinus (principal); F41.9 Anxiety disorder, unspecified; F31.9 Bipolar disorder, unspecified; F42.9 Obsessive-compulsive disorder, unspecified; F43.10 Post-traumatic stress disorder, unspecified; F17.210 Nicotine dependence, cigarettes, uncomplicated; Z79.899 Other long term (current) drug therapy; Z79.01 Long term (current) use of anticoagulants | CPT/HCPCS: 99282 ==

== ENCOUNTER 2019-01-07 17:22 | Emergency (ER) | payer OTHER, SELFPAY ==
[2019-01-07 17:56] LABS: #Basophils 0.1 thou/uL (0.0-0.2); #Eosinphils 0.1 thou/uL (0.0-0.7); #Monocytes 0.7 thou/uL (0.11-0.59); %Basophils 0.9 % (0.0-1.0); %Eosinophils 1.9 % (0.0-10.0); %Lymphocytes 29.1 % (21.0-51.0); %Monocytes 9.7 % (0.0-10.0); %Neutrophils 58.4 % (42.0-75.0); Hemoglobin 13.6 g/dL (12.0-16.0); Mean Corpuscular HGB CONC 31.9 g/dL (32.0-36.0); Mean Corpuscular Volume 93.8 fL (78.0-98.0); Platelet Count 253 thou/uL (130-400); Red Blood Cell (RBC) Count 4.55 mill/uL (4.20-5.40); White Blood Cell (WBC) Count 6.9 thou/uL (4.8-10.8)
[2019-01-07 18:47] LABS: INR-International Normal Ratio 1.6
[2019-01-07 19:24] LABS: ALT (SGPT) 22 U/L (8-55); AST (SGOT) 12 U/L (5-34); Albumin 3.9 g/dL (3.5-5.0); Alkaline Phosphatase 47 U/L (40-150); Anion Gap 12 mmol/L (10-20); BUN (Urea Nitrogen) 13 mg/dL (7.0-18.7); Bilirubin, Total 0.2 mg/dL (0.2-1.2); Calc. Creatinine Clearance 0 mL/min (70-130); Calcium 8.9 mg/dL (7.8-10.44); Carbon Dioxide 25 mmol/L (22-29); Chloride 105 mmol/L (98-107); Estimated GFR-MDRD 74; Glucose 103 mg/dL (70-105); Potassium 4.3 mmol/L (3.5-5.1); Protein, Total 5.9 g/dL (6.0-8.3); Sodium 138 mmol/L (136-145)
== END 2019-01-07 19:40 ==
LOC: BURERS 17:22
DX: R06.02 Shortness of breath (principal); F41.9 Anxiety disorder, unspecified; F31.9 Bipolar disorder, unspecified; F42.9 Obsessive-compulsive disorder, unspecified; F43.10 Post-traumatic stress disorder, unspecified; F17.210 Nicotine dependence, cigarettes, uncomplicated; Z79.899 Other long term (current) drug therapy; Z86.711 Personal history of pulmonary embolism; Z79.01 Long term (current) use of anticoagulants
CPT/HCPCS: 80053; 84484; 85025; 85610; 93005

== ENCOUNTER 2019-01-29 11:29 | Emergency (ER) | payer OTHER, SELFPAY ==
[2019-01-29 13:06] LABS: INR-International Normal Ratio 2.3; PTT 39.8 SEC (22.9-36.1); Prothrombin Time 26.2 SEC (12.0-14.7)
== END 2019-01-29 12:25 | disposition home or self-care (01) ==
LOC: BURERS 11:29
DX: R07.89 Other chest pain (principal); F41.9 Anxiety disorder, unspecified; F31.9 Bipolar disorder, unspecified; F43.10 Post-traumatic stress disorder, unspecified; F42.9 Obsessive-compulsive disorder, unspecified; F17.210 Nicotine dependence, cigarettes, uncomplicated; Z79.899 Other long term (current) drug therapy; Z86.718 Personal history of other venous thrombosis and embolism; Z86.711 Personal history of pulmonary embolism; Z79.01 Long term (current) use of anticoagulants
CPT/HCPCS: 36415; 84484; 85610; 85730; 93005

== ENCOUNTER 2019-06-29 14:01 | Emergency (ER) | payer SELFPAY ==
[2019-06-29] MEDS ORDERED: Dexamethasone 4 MG TAB ONE (14:17)
[2019-06-29] MEDS ORDERED: AMOXicillin 250 MG CAP ONE ×2 (14:18→14:22)
== END 2019-06-29 14:27 | disposition home or self-care (01) ==
LOC: BURERS 14:01
DX: J06.9 Acute upper respiratory infection, unspecified (principal); F17.210 Nicotine dependence, cigarettes, uncomplicated; F31.9 Bipolar disorder, unspecified; F43.10 Post-traumatic stress disorder, unspecified; F42.9 Obsessive-compulsive disorder, unspecified; Z86.711 Personal history of pulmonary embolism
CPT/HCPCS: 99283; J8540

== ENCOUNTER 2019-07-14 19:53 | Emergency (ER) | payer SELFPAY | END 2019-07-14 20:43 | disposition home or self-care (01) | LOC: BURERS 19:53 | DX: H66.92 Otitis media, unspecified, left ear (principal); H72.92 Unspecified perforation of tympanic membrane, left ear; F41.9 Anxiety disorder, unspecified; F31.9 Bipolar disorder, unspecified; F43.10 Post-traumatic stress disorder, unspecified; F42.9 Obsessive-compulsive disorder, unspecified; F17.210 Nicotine dependence, cigarettes, uncomplicated; Z86.718 Personal history of other venous thrombosis and embolism | CPT/HCPCS: 99282 ==

== ENCOUNTER 2019-09-19 16:34 | Emergency (ER) | payer SELFPAY | END 2019-09-19 16:57 | disposition home or self-care (01) | LOC: BURERS 16:34 | DX: J06.9 Acute upper respiratory infection, unspecified (principal); F31.9 Bipolar disorder, unspecified; F41.9 Anxiety disorder, unspecified; F43.10 Post-traumatic stress disorder, unspecified; F42.9 Obsessive-compulsive disorder, unspecified; F17.210 Nicotine dependence, cigarettes, uncomplicated; Z86.718 Personal history of other venous thrombosis and embolism; Z86.711 Personal history of pulmonary embolism | CPT/HCPCS: 99281 ==

== ENCOUNTER 2020-01-07 20:08 | Emergency (ER) | payer SELFPAY ==
[2020-01-07] MEDS ORDERED: Clindamycin 150 MG CAP ONE (20:22)
== END 2020-01-07 20:27 | disposition home or self-care (01) ==
LOC: BURERS 20:08
DX: L03.115 Cellulitis of right lower limb (principal); Z86.711 Personal history of pulmonary embolism; F41.9 Anxiety disorder, unspecified; F31.9 Bipolar disorder, unspecified; F43.10 Post-traumatic stress disorder, unspecified; F17.210 Nicotine dependence, cigarettes, uncomplicated; Z79.899 Other long term (current) drug therapy; Z79.01 Long term (current) use of anticoagulants
CPT/HCPCS: 99283

== ENCOUNTER 2020-04-09 11:31 | Emergency (ER) | payer SELFPAY ==
[2020-04-09] MEDS ORDERED: Ventolin HFA Inhaler 60 PUFF INHALER INH ONE (11:32)
[2020-04-09 12:03] LABS: #Basophils 0.1 thou/uL (0.0-0.2); #Eosinphils 0.4 thou/uL (0.0-0.7); #Monocytes 0.6 thou/uL (0.11-0.59); #Neutrophils 3.4 thou/uL (1.40-6.50); %Basophils 1.3 % (0.0-1.0); %Eosinophils 6.3 % (0.0-10.0); %Lymphocytes 31.2 % (21.0-51.0); %Neutrophils 52.3 % (42.0-75.0); Hemoglobin 13.4 g/dL (12.0-16.0); Mean Corpuscular HGB CONC 30.9 g/dL (32.0-36.0); Mean Corpuscular Hemoglobin 29.1 pg (27.0-31.0); Mean Corpuscular Volume 94.4 fL (78.0-98.0); Mean Platelet Volume 5.8 fL (7.4-10.4); Platelet Count 309 thou/uL (130-400); RBC Distribution Width 14.2 % (11.5-14.5); Red Blood Cell (RBC) Count 4.61 mill/uL (4.20-5.40); White Blood Cell (WBC) Count 6.4 thou/uL (4.8-10.8)
[2020-04-09] MEDS ORDERED: Aspirin Chewable 81 MG TAB ONE (12:05)
[2020-04-09 12:15] LABS: ALT (SGPT) 14 U/L (8-55); AST (SGOT) 10 U/L (5-34); Albumin 3.9 g/dL (3.5-5.0); Alkaline Phosphatase 56 U/L (40-110); Anion Gap 12 mmol/L (10-20); BUN (Urea Nitrogen) 11 mg/dL (7.0-18.7); Bilirubin, Total 0.2 mg/dL (0.2-1.2); Calc. Creatinine Clearance 0 mL/min (70-130); Calcium 8.2 mg/dL (7.8-10.44); Carbon Dioxide 26 mmol/L (22-29); Chloride 103 mmol/L (98-107); Estimated GFR-MDRD 65; Globulin 2.6 g/dL (2.4-3.5); Glucose 94 mg/dL (70-105); Potassium 3.4 mmol/L (3.5-5.1); Protein, Total 6.5 g/dL (6.0-8.3); Sodium 138 mmol/L (136-145)
[2020-04-09 12:26] LABS: PTT 37.1 sec (22.9-36.1)
[2020-04-09 12:27] LABS: INR-International Normal Ratio 1.7; Prothrombin Time 20.1 sec (12.0-14.7)
[2020-04-09 12:29] LABS: D-Dimer Test Less than 0.27 *mcg/mL (0.27-0.43)
[2020-04-09 13:27] LABS: Troponin I Less than 0.010 ng/mL (< 0.028)
--- NOTE | 2020-04-09 16:19 | RAD ---
CHEST TWO VIEWS: 04/09/20 Comparison is made with the 04/03/18 study. There has been no adverse interval change. The heart is no rmal in size and the lungs are clear. No infiltrate or effusion was seen. The mediastinum appears nor mal. IMPRESSION: No acute thoracic findings. POS: HOME
== END 2020-04-09 13:47 | disposition home or self-care (01) ==
LOC: BURERS 11:31
DX: J98.01 Acute bronchospasm (principal); F31.9 Bipolar disorder, unspecified; F41.9 Anxiety disorder, unspecified; F43.10 Post-traumatic stress disorder, unspecified; F17.210 Nicotine dependence, cigarettes, uncomplicated; F42.9 Obsessive-compulsive disorder, unspecified; Z86.711 Personal history of pulmonary embolism; Z86.718 Personal history of other venous thrombosis and embolism
CPT/HCPCS: 71046; 80053; 84443; 84484; 85025; 85379; 85610; 85730; 93005; 94760

== ENCOUNTER 2020-07-26 11:09 | Emergency (ER) | payer SELFPAY ==
[2020-07-26] MEDS ORDERED: Ibuprofen 200 MG TAB ONE (11:31)
[2020-07-26] MEDS ORDERED: predniSONE 20 MG TAB ONE (11:31)
== END 2020-07-26 11:33 | disposition home or self-care (01) ==
LOC: BURERS 11:09
DX: G56.03 Carpal tunnel syndrome, bilateral upper limbs (principal); F17.210 Nicotine dependence, cigarettes, uncomplicated; Z86.711 Personal history of pulmonary embolism; Z86.718 Personal history of other venous thrombosis and embolism; Z79.01 Long term (current) use of anticoagulants; Z79.899 Other long term (current) drug therapy
CPT/HCPCS: 99281; J7512

== ENCOUNTER 2020-09-24 21:53 | Emergency (ER) | payer SELFPAY ==
[2020-09-24] MEDS ORDERED: Lorazepam 0.5 MG TAB ONE (22:29)
== END 2020-09-24 22:32 | disposition home or self-care (01) ==
LOC: BURERS 21:53
DX: F41.9 Anxiety disorder, unspecified (principal); F17.210 Nicotine dependence, cigarettes, uncomplicated; Z86.711 Personal history of pulmonary embolism; Z86.718 Personal history of other venous thrombosis and embolism; Z79.899 Other long term (current) drug therapy
CPT/HCPCS: 99283

== ENCOUNTER 2020-10-14 13:47 | Emergency (ER) | payer SELFPAY ==
[~2020-10-14 13:47] MED LIST: Iopamidol 370 76% 100 ML VIAL ONE
[2020-10-14 14:21] LABS: #Basophils 0.1 thou/uL (0.0-0.2); #Eosinphils 0.2 thou/uL (0.0-0.7); #Lymphocytes 1.8 thou/uL (1.20-3.40); #Monocytes 0.8 thou/uL (0.11-0.59); #Neutrophils 5.6 thou/uL (1.40-6.50); %Basophils 0.9 % (0.0-1.0); %Eosinophils 2.7 % (0.0-10.0); %Lymphocytes 21.5 % (21.0-51.0); %Monocytes 9.1 % (0.0-10.0); %Neutrophils 65.9 % (42.0-75.0); Hemoglobin 15.8 g/dL (12.0-16.0); Mean Corpuscular HGB CONC 32.8 g/dL (32.0-36.0); Mean Corpuscular Hemoglobin 30.3 pg (27.0-31.0); Mean Corpuscular Volume 92.3 fL (78.0-98.0); Mean Platelet Volume 5.9 fL (7.4-10.4); Platelet Count 347 thou/uL (130-400); RBC Distribution Width 13.3 % (11.5-14.5); Red Blood Cell (RBC) Count 5.22 mill/uL (4.20-5.40); White Blood Cell (WBC) Count 8.5 thou/uL (4.8-10.8)
[2020-10-14 14:25] LABS: INR-International Normal Ratio 1.6
[2020-10-14 14:31] LABS: Acetaminophen Less than 6.0 mcg/mL (10.0-30.0); Alcohol Less than 10 mg/dL (Less than 10); CK (CPK) 65 U/L (29-168); Salicylate Less than 8.0 mg/dL (15.0-30.0)
[2020-10-14 14:33] LABS: ALT (SGPT) 12 U/L (8-55); AST (SGOT) 12 U/L (5-34); Albumin 4.1 g/dL (3.5-5.0); Alkaline Phosphatase 64 U/L (40-110); Anion Gap 13 mmol/L (10-20); BUN (Urea Nitrogen) 10 mg/dL (7.0-18.7); Bilirubin, Total Less than 0.2 mg/dL (0.2-1.2); Calc. Creatinine Clearance 0 mL/min (70-130); Calcium 8.8 mg/dL (7.8-10.44); Carbon Dioxide 29 mmol/L (22-29); Chloride 102 mmol/L (98-107); Globulin 3.3 g/dL (2.4-3.5); Glucose 85 mg/dL (70-105); Potassium 3.6 mmol/L (3.5-5.1); Protein, Total 7.4 g/dL (6.0-8.3); Sodium 140 mmol/L (136-145)
[2020-10-14 14:36] LABS: Pregnancy Test - Urine (BHCG) Negative (Negative)
[2020-10-14 14:37] LABS: Bilirubin Negative (Negative); Blood, Urine Moderate (Negative); Clarity Clear (Clear); Glucose, Urine (Dipstick) Negative (Negative); Ketone, Urine Negative (Negative); Leukocyte Negative (Negative); Nitrite Negative (Negative); Pregu Control Background? CLEAR/WHITE (CLR/WHITE); Pregu Control Bar Appear? YES (CONTROL BAR); Protein, Urine (Dipstick) Negative (Neg-Trace); Urobilinogen 0.2 mg/dL (Less than 2); pH, Urine 7.5 (5.0-9.0)
[2020-10-14 14:42] LABS: Bacteria/HPF Rare-Few HPF (None Seen); RBC/HPF 0-3 HPF (0-3); Squamous Epithelial 0-3 HPF (0-3); WBC/HPF 0-3 HPF (0-3)
[2020-10-14 14:48] LABS: Amphetamine Not Detected (NotDetected); Barbiturates Screen Not Detected (NotDetected); Benzodiazepine Screen Not Detected (NotDetected); Cocaine Metabolite Screen Not Detected (NotDetected); Methadone Not Detected (NotDetected); Methamphetamine Not Detected (NotDetected); Opiate Screen Not Detected (NotDetected); Oxycodone Screen Not Detected (NotDetected); Phencyclidine (PCP) Not Detected (NotDetected); THC/Cannabinoid Screen Detected (NotDetected); Tricyclic Screen Not Detected (NotDetected)
[2020-10-14 14:49] LABS: Medtox Control Line Valid? VALID (VALID)
[2020-10-14] MEDS ORDERED: Aspirin Chewable 81 MG TAB ONE (15:24)
== END 2020-10-14 15:58 | disposition short-term general hospital (02) ==
LOC: BURERS 13:47
DX: I63.412 Cerebral infarction due to embolism of left middle cerebral artery (principal); R47.1 Dysarthria and anarthria; F17.210 Nicotine dependence, cigarettes, uncomplicated; Z86.711 Personal history of pulmonary embolism; Z86.718 Personal history of other venous thrombosis and embolism; R29.702 NIHSS score 2
CPT/HCPCS: 70450; 70496; 70498; 71045; 80053; 80306; 80307; 81003; 81015; 81025; 82550; 84484; 85025; 85610; 93005; Q9967

== ENCOUNTER 2021-04-05 12:29 | Emergency (ER) | payer SELFPAY | END 2021-04-05 13:01 | disposition home or self-care (01) | LOC: BURERS 12:29 | DX: K04.7 Periapical abscess without sinus (principal); F17.210 Nicotine dependence, cigarettes, uncomplicated | CPT/HCPCS: 99283 ==

== ENCOUNTER 2021-05-14 16:32 | Emergency (ER) | payer SELFPAY ==
[2021-05-14 17:27] LABS: Bilirubin Negative (Negative); Blood, Urine Negative (Negative); Clarity Clear (Clear); Glucose, Urine (Dipstick) Negative (Negative); Ketone, Urine Negative (Negative); Leukocyte Negative (Negative); Nitrite Negative (Negative); Protein, Urine (Dipstick) Negative (Neg-Trace); Specific Gravity, Urine 1.025 (1.005-1.030); Urobilinogen 0.2 mg/dL (Less than 2); pH, Urine 5.5 (5.0-9.0)
[2021-05-14] MEDS ORDERED: Meclizine HCl 25 MG TAB ONE (18:03)
== END 2021-05-14 18:10 | disposition home or self-care (01) ==
LOC: BURERS 16:32
DX: R42 Dizziness and giddiness (principal); G56.03 Carpal tunnel syndrome, bilateral upper limbs; F17.210 Nicotine dependence, cigarettes, uncomplicated
CPT/HCPCS: 81003; 99284

== ENCOUNTER 2021-05-25 20:49 | Emergency (ER) | payer SELFPAY | END 2021-05-25 21:00 | disposition left against medical advice (07) | LOC: BURERS 20:49 | DX: R47.81 Slurred speech (principal); Z86.711 Personal history of pulmonary embolism; Z86.718 Personal history of other venous thrombosis and embolism; F17.210 Nicotine dependence, cigarettes, uncomplicated | CPT/HCPCS: 99284 ==

== ENCOUNTER 2023-05-10 13:02 | Emergency (ER) | payer OTHER | END 2023-05-10 13:35 | disposition home or self-care (01) | LOC: BURERS 13:02 | DX: K04.7 Periapical abscess without sinus (principal) | CPT/HCPCS: 99283 ==

== ENCOUNTER 2025-04-16 14:22 | Emergency (ER) | payer OTHER | END 2025-04-16 15:37 | disposition home or self-care (01) | LOC: BURERS 14:22 | DX: K08.89 Other specified disorders of teeth and supporting structures (principal); K04.7 Periapical abscess without sinus; E78.5 Hyperlipidemia, unspecified; F17.210 Nicotine dependence, cigarettes, uncomplicated; Z79.82 Long term (current) use of aspirin; Z79.84 Long term (current) use of oral hypoglycemic drugs; Z79.51 Long term (current) use of inhaled steroids | CPT/HCPCS: 99282 ==